=== PATIENT | female | born 1985 | race Caucasian/White ===

== ENCOUNTER 2016-12-21 19:31 | Emergency (ER) | payer MEDICAID ==
[~2016-12-21] VITALS: Ht 167.6 cm; Wt 78.0 kg
[2016-12-22] MEDS ORDERED: HYDROCODONE/ACETAMINOPHEN 5/325MG TABLET PO ONE (01:00)
[2016-12-22 02:17] VITALS: BP 140/92
== END 2016-12-22 02:22 | disposition home or self-care (01) ==
LOC: ER 12-22 00:50
DX: K02.9 Dental caries, unspecified (principal)
CPT/HCPCS: 99283

== ENCOUNTER 2017-05-26 07:52 | Emergency (ER) | payer MEDICAID ==
[~2017-05-26] VITALS: Ht 167.6 cm; Wt 75.0 kg
[2017-05-26 08:25] LABS: BASOPHILS % 0.5 % (0.0-2.0); EOSINOPHILS % 0.4 % (0.0-5.0); HEMATOCRIT. 36.3 % (36.0-48.0); HEMOGLOBIN. 12.1 g/dL (12.0-16.0); LYMPHOCYTES % 28.8 % (20.0-50.0); MEAN CORPUSCULAR HEMOGLOBIN 28.7 pg (28.0-32.0); MEAN CORPUSCULAR VOLUME 86.5 fL (81.0-99.0); MONOCYTES % 9.8 % (2.0-8.0); NEUTROPHILS % 60.5 % (40.0-76.0); PLATELET 276 x1000/uL (130-400); RED CELL DISTRIBUTION WIDTH 15.2 % (11.6-14.6)
[2017-05-26 08:48] LABS: CARBON DIOXIDE 25 mEq/L (21-32); CHLORIDE 103 mEq/L (98-107)
[2017-05-26 08:56] LABS: B-HCG QUANTITATIVE 57544 mIU/mL (<3)
[2017-05-26 09:28] LABS: CLARITY URINE CLEAR (CLEAR); COLOR URINE YELLOW (YELLOW); KETONES URINE NEGATIVE (NEGATIVE); LEUKOCYTE ESTERASE URINE NEGATIVE (NEGATIVE); NITRITE URINE NEGATIVE (NEGATIVE); OCCULT BLOOD URINE NEGATIVE (NEGATIVE); PH URINE 6.5 (4.5-8.0); PROTEIN URINE NEGATIVE (NEGATIVE); SPECIFIC GRAVITY URINE 1.022 (1.005-1.030); UROBILINOGEN URINE 0.2 E.U./dL (0.2-1.0)
[2017-05-26 09:32] VITALS: BP 107/70
== END 2017-05-26 10:33 | disposition home or self-care (01) ==
LOC: ER 10:10
DX: O20.0 Threatened abortion (principal); Z3A.08 8 weeks gestation of pregnancy
CPT/HCPCS: 36415; 76801; 80053; 81003; 81025; 84702; 85025; 86850; 86900; 99285

== ENCOUNTER 2017-12-23 06:05 | Inpatient (IN) | payer MEDICAID ==
[~2017-12-23] VITALS: Ht 167.6 cm; Wt 81.2 kg
[2017-12-23] MEDS: LACTATED RINGERS 1,000 ML IV SCH ×2 (07:09→08:09)
[2017-12-23 07:39] LABS: BASOPHILS % 0.3 % (0.0-2.0); EOSINOPHILS % 0.3 % (0.0-5.0); HEMATOCRIT. 35.7 % (36.0-48.0); LYMPHOCYTES % 15.8 % (20.0-50.0); MEAN CORPUSCULAR HEMOGLOBIN 30.3 pg (28.0-32.0); MEAN CORPUSCULAR VOLUME 89.8 fL (81.0-99.0); MEAN PLATELET VOLUME 8.6 fl (7.4-10.4); MONOCYTES % 7.7 % (2.0-8.0); NEUTROPHILS % 75.9 % (40.0-76.0); PLATELET 223 x1000/uL (130-400); RED BLOOD CELL COUNT 3.97 mill/uL (4.2-5.4); RED CELL DISTRIBUTION WIDTH 13.9 % (11.6-14.6)
[2017-12-23] MEDS ORDERED: NALOXONE HCL 0.4 MG/ML 1ML VIAL IM PRN (07:45)
[2017-12-23] MEDS ORDERED: LIDOCAINE HCL 1% 20ML VIAL (Pyxis) INJ INFIL SCH (07:45)
[2017-12-23] MEDS ORDERED: METHYLERGONOVINE MALEATE 0.2 MG/ML IM PRN (07:45)
[2017-12-23] MEDS ORDERED: BUTORPHANOL TARTRATE 2 MG/ML VIAL IV PRN (07:45)
[2017-12-23 07:52] LABS: PARTIAL THROMBOPLASTIN TIME 29.8 sec (23.4-31.0); PROTHROMBIN TIME 10.2 sec (9.4-11.6)
[2017-12-23] MEDS ORDERED: PENICILLIN G POTASSIUM 5 MMU in DEXT 5% WATER 100 ML IV SCH (08:00)
[2017-12-23] MEDS ORDERED: FENTANYL CITRATE/PF 50MCG/ML 2ML VIAL ONE (08:42)
[2017-12-23 08:49] LABS: CLARITY URINE CLEAR (CLEAR); COLOR URINE YELLOW (YELLOW); KETONES URINE 1+ (NEGATIVE); LEUKOCYTE ESTERASE URINE NEGATIVE (NEGATIVE); NITRITE URINE NEGATIVE (NEGATIVE); OCCULT BLOOD URINE NEGATIVE (NEGATIVE); PH URINE 6.5 (4.5-8.0); PROTEIN URINE NEGATIVE (NEGATIVE); SPECIFIC GRAVITY URINE 1.017 (1.005-1.030); UROBILINOGEN URINE 0.2 E.U./dL (0.2-1.0)
[2017-12-23] MEDS ORDERED: BUPIVACAINE HCL/NS/PF EPIDURAL 100 ML EP ONE (08:50)
[2017-12-23] MEDS: DEXT 5%/LR + PITOCIN 20UNITS/L 1,000 ML IV SCH ×2 (09:04→11:34)
[2017-12-23 09:19] LABS: *AMPHETAMINES SCREEN URINE NEGATIVE (NEGATIVE); *BARBITURATES SCREEN URINE NEGATIVE (NEGATIVE); *BENZODIAZEPINES SCREEN URINE NEGATIVE (NEGATIVE); *COCAINE SCREEN URINE NEGATIVE (NEGATIVE); METHADONE URINE SCREEN NEGATIVE (NEGATIVE)
[2017-12-23 09:20] LABS: CANNABINOID URINE SCREEN NEGATIVE (NEGATIVE); OPIATES URINE SCREEN NEGATIVE (NEGATIVE); PHENCYCLIDINE URINE SCREEN NEGATIVE (NEGATIVE)
[2017-12-23 10:16] LABS: HEPATITIS B SURFACE ANTIGEN NEGATIVE
[2017-12-23] MEDS ORDERED: DEXT 5%/LR + PITOCIN 20UNITS/L 1,000 ML IV SCH (10:28)
[2017-12-23] MEDS ORDERED: GLYCERIN/WITCH HAZEL LEAF MEDICATED PAD TOP PRN (10:30)
[2017-12-23] MEDS ORDERED: ACETAMINOPHEN WITH CODEINE 300/30MG TABLET PO PRN ×2 (10:30)
[2017-12-23] MEDS ORDERED: BENZOCAINE/LANOLIN/ALOE VERA SPRAY TOP PRN (10:30)
[2017-12-23] MEDS ORDERED: BISACODYL 10MG SUPP PR PRN (10:30)
[2017-12-23 10:42] LABS: RUBELLA IGG > 500.0 IU/mL (4.99-10)
[2017-12-23] MEDS ORDERED: PENICILLIN G POTASSIUM 2.5 MMU in DEXTROSE 5% WATER 50 ML IV SCH (12:00)
[2017-12-23] MEDS: MAGNESIUM/ALUMINUM HYDROXIDE/SIMETHICONE 30ML UDC PO SCH ×3 (12:09→21:00)
[2017-12-23] MEDS: SIMETHICONE 80MG TABLET CHEW PO SCH ×3 (12:10→20:59)
[2017-12-23 12:45] VITALS: BP 109/62
[2017-12-23 14:50] VITALS: BP 99/55
[2017-12-23] MEDS: DOCUSATE SODIUM 100MG CAPSULE PO SCH (20:59)
[2017-12-23 22:00] VITALS: BP 113/69
[2017-12-24 06:00] VITALS: BP 110/65
[2017-12-24] MEDS: IBUPROFEN 400MG TABLET PO PRN ×2 (06:35→17:33)
[2017-12-24 06:55] LABS: BASOPHILS % 0.2 % (0.0-2.0); EOSINOPHILS % 0.4 % (0.0-5.0); HEMATOCRIT. 32.2 % (36.0-48.0); HEMOGLOBIN. 11.1 g/dL (12.0-16.0); LYMPHOCYTES % 21.2 % (20.0-50.0); MEAN CORPUSCULAR HEMOGLOBIN 30.9 pg (28.0-32.0); MEAN CORPUSCULAR VOLUME 89.9 fL (81.0-99.0); MEAN PLATELET VOLUME 8.9 fl (7.4-10.4); MONOCYTES % 8.4 % (2.0-8.0); NEUTROPHILS % 69.8 % (40.0-76.0); PLATELET 193 x1000/uL (130-400); RED BLOOD CELL COUNT 3.58 mill/uL (4.2-5.4)
[2017-12-24 07:43] VITALS: BP 101/67
[2017-12-24] MEDS: SIMETHICONE 80MG TABLET CHEW PO SCH ×4 (08:33→21:06)
[2017-12-24] MEDS: MAGNESIUM/ALUMINUM HYDROXIDE/SIMETHICONE 30ML UDC PO SCH ×4 (08:33→21:07)
[2017-12-24] MEDS: PRENATAL VIT/FE FUMARATE/FA TABLET PO SCH (08:33)
[2017-12-24 15:34] VITALS: BP 94/56
[2017-12-24 20:00] VITALS: BP 107/52
[2017-12-24] MEDS: DOCUSATE SODIUM 100MG CAPSULE PO SCH (21:06)
[2017-12-25 06:00] VITALS: BP 108/64
[2017-12-25 07:55] VITALS: BP 104/63
[2017-12-25] MEDS: PRENATAL VIT/FE FUMARATE/FA TABLET PO SCH (08:31)
[2017-12-25] MEDS: MAGNESIUM/ALUMINUM HYDROXIDE/SIMETHICONE 30ML UDC PO SCH (08:31)
[2017-12-25] MEDS: SIMETHICONE 80MG TABLET CHEW PO SCH (08:31)
== END 2017-12-25 12:46 | disposition home or self-care (01) | DRG 560 ==
LOC: L&D 06:05 → OBSVTOIN 09:53 → 7EST PP/OB 13:55
PROVIDERS: ADMIT Obstetrics & Gynecology; ATTEND Obstetrics & Gynecology
PROC: 10E0XZZ Delivery of Products of Conception, External Approach (ICD-10-PCS; principal; 2017-12-23 09:53)
PROC: 3E0R3BZ Introduction of Anesthetic Agent into Spinal Canal, Percutaneous Approach (ICD-10-PCS; 2017-12-24)
PROC: 00HU33Z Insertion of Infusion Device into Spinal Canal, Percutaneous Approach (ICD-10-PCS; 2017-12-24)
DX: O76 Abnormality in fetal heart rate and rhythm complicating labor and delivery (principal); D62 Acute posthemorrhagic anemia; O99.02 Anemia complicating childbirth; Z37.0 Single live birth; Z3A.39 39 weeks gestation of pregnancy
CPT/HCPCS: 36415; 80305; 81003; 85025; 85610; 85730; 86592; 86703; 86762; 86850; 86900; 87340; G0378; J2540; J2590; J3010; J3490; J7060; J7120; A4315

== ENCOUNTER 2018-08-26 13:44 | Emergency (ER) | payer MEDICAID ==
[~2018-08-26] VITALS: Ht 167.6 cm; Wt 77.0 kg
[2018-08-26 14:19] VITALS: BP 125/82
== END 2018-08-26 16:31 | disposition home or self-care (01) ==
LOC: ER 13:44
DX: S63.697A Other sprain of left little finger, initial encounter (principal); X58.XXXA Exposure to other specified factors, initial encounter; Y93.89 Activity, other specified; Y92.89 Other specified places as the place of occurrence of the external cause; Y99.8 Other external cause status
CPT/HCPCS: 73140; 81025; 99283

== ENCOUNTER 2021-10-20 16:05 | Emergency (ER) | payer MEDICAID ==
[~2021-10-20] VITALS: Ht 175.3 cm; Wt 73.0 kg
[2021-10-20 16:08] VITALS: BP 118/80
[2021-10-20] MEDS ORDERED: ACETAMINOPHEN 325MG TABLET PO STA (16:23)
[2021-10-20 16:46] LABS: CLARITY URINE TURBID (CLEAR); COLOR URINE YELLOW (YELLOW); KETONES URINE TRACE (NEGATIVE); LEUKOCYTE ESTERASE URINE 2+ (NEGATIVE); NITRITE URINE NEGATIVE (NEGATIVE); OCCULT BLOOD URINE NEGATIVE (NEGATIVE); PH URINE 6.5 (4.5-8.0); PROTEIN URINE TRACE (NEGATIVE); SPECIFIC GRAVITY URINE 1.025 (1.005-1.030)
[2021-10-20 16:52] LABS: BASOPHILS % 0.5 % (0.0-2.0); EOSINOPHILS % 0.5 % (0.0-5.0); HEMATOCRIT. 34.4 % (36.0-48.0); HEMOGLOBIN. 11.5 g/dL (12.0-16.0); LYMPHOCYTES % 20.2 % (20.0-50.0); MEAN CORPUSCULAR HEMOGLOBIN 29.4 pg (28.0-32.0); MEAN CORPUSCULAR VOLUME 88.2 fL (81.0-99.0); MEAN PLATELET VOLUME 8.2 fl (7.4-10.4); MONOCYTES % 9.7 % (2.0-8.0); NEUTROPHILS % 69.1 % (40.0-76.0); PLATELET 233 x1000/uL (130-400); RED CELL DISTRIBUTION WIDTH 15.2 % (11.6-14.6)
[2021-10-20 16:58] LABS: CHLORIDE 109 mEq/L (98-107)
[2021-10-20 17:20] LABS: B-HCG QUANTITATIVE 27207 mIU/mL (<3)
[2021-10-20] MEDS ORDERED: CEPH250T MT (17:48)
== END 2021-10-20 18:09 | disposition home or self-care (01) ==
LOC: ER 16:05
DX: O23.42 Unspecified infection of urinary tract in pregnancy, second trimester (principal); N39.0 Urinary tract infection, site not specified; Z3A.15 15 weeks gestation of pregnancy
CPT/HCPCS: 36415; 76805; 80053; 81003; 81025; 84702; 85025; 86900; 99284

== ENCOUNTER 2022-03-29 10:15 | Observation (INO) | payer MEDICAID ==
[~2022-03-29] VITALS: Ht 167.6 cm; Wt 78.0 kg
[~2022-03-29 10:15] MED LIST: CEPH250T MT
[2022-03-29] MEDS ORDERED: PREN-118 PO (11:18)
[2022-04-01] MEDS ORDERED: FERR-63 PO (08:47)
[2022-04-01] MEDS ORDERED: IBUP-2030 PO (08:47)
== END 2022-03-29 14:45 | disposition home or self-care (01) ==
LOC: 8 EST A/PP 10:15 → 8 EST LDRP 10:39
PROVIDERS: ADMIT Obstetrics & Gynecology; ATTEND Obstetrics & Gynecology
DX: O62.9 Abnormality of forces of labor, unspecified (principal); O23.43 Unspecified infection of urinary tract in pregnancy, third trimester; Z3A.38 38 weeks gestation of pregnancy
CPT/HCPCS: 59025; 76805; 76818; G0378; 99281

== ENCOUNTER 2023-06-30 17:12 | Emergency (ER) | payer MEDICAID ==
[~2023-06-30] VITALS: Ht 167.6 cm; Wt 82.0 kg
[~2023-06-30 17:12] MED LIST changes: -CEPH250T MT; +FERR-63 PO; +IBUP-2030 PO; +PREN-118 PO
[2023-06-30 17:29] VITALS: BP 130/86; PULSE 79; RESP 17; TEMP 97.9; O2SAT 99
[2023-06-30 20:16] LABS: BASOPHILS % 0.9 % (0.0-2.0); HEMOGLOBIN. 12.4 g/dL (12.0-16.0); LYMPHOCYTES % 36.3 % (20.0-50.0); MEAN CORPUSCULAR HEMOGLOBIN 27.2 pg (28.0-32.0); MEAN CORPUSCULAR HGB CONC 31.7 g/dL (31.0-37.0); MEAN CORPUSCULAR VOLUME 85.8 fL (81.0-99.0); MEAN PLATELET VOLUME 8.1 fl (7.4-10.4); MONOCYTES % 8.7 % (2.0-8.0); NEUTROPHILS % 53.1 % (40.0-76.0); PLATELET 332 x1000/uL (130-400); RED BLOOD CELL COUNT 4.55 mill/uL (4.2-5.4); RED CELL DISTRIBUTION WIDTH 16.1 % (11.6-14.6); WHITE BLOOD COUNT 6.7 x1000/uL (4.5-11.0)
[2023-06-30 20:29] LABS: HCG SCREEN NEGATIVE
[2023-06-30 20:33] LABS: ALANINE AMINOTRANSFERASE 41 IU/L (10-49); ALBUMIN 4.5 g/dL (3.2-4.8); ASPARTATE AMINOTRANSFERASE 35 IU/L (<34); BILIRUBIN TOTAL 0.6 mg/dL (0.1-1.0); CALCIUM 9.4 mg/dL (8.7-10.4); CARBON DIOXIDE 24 mEq/L (21-32); CHLORIDE 102 mEq/L (98-107); CREATININE 0.7 mg/dL (0.6-1.0); GLUCOSE 86 mg/dL (70-105); POTASSIUM 4.1 mEq/L (3.5-5.1); PROTEIN TOTAL 8.4 g/dL (6.0-8.3); SODIUM 137 mEq/L (136-145); UREA NITROGEN BLOOD 7 mg/dL (9-23)
== END 2023-06-30 20:09 | disposition home or self-care (01) ==
LOC: ER 17:12
DX: L29.9 Pruritus, unspecified (principal); R53.83 Other fatigue; Z98.51 Tubal ligation status
CPT/HCPCS: 36415; 80053; 84703; 85025; 86592; 99283

== ENCOUNTER 2023-09-26 17:35 | Emergency (ER) | payer MEDICAID ==
[~2023-09-26] VITALS: Ht 170.2 cm; Wt 81.0 kg
[2023-09-26 17:41] VITALS: TEMP 98.1; O2SAT 98
[2023-09-26] MEDS ORDERED: AMOX1TAB16 MT (19:36)
[2023-09-26] MEDS: AMOXICILLIN/POTASSIUM CLAVULANATE 875/125MG TAB PO ONE (21:25)
[2023-09-26] MEDS: ACETAMINOPHEN 325MG TABLET PO ONE (21:25)
[2023-09-26 21:26] VITALS: BP 138/73; PULSE 86; RESP 20
== END 2023-09-26 21:26 | disposition home or self-care (01) ==
LOC: ER 17:35
DX: T78.40XA Allergy, unspecified, initial encounter (principal); K04.7 Periapical abscess without sinus; Z98.51 Tubal ligation status; X58.XXXA Exposure to other specified factors, initial encounter
CPT/HCPCS: 36415; 99283